=== PATIENT | male | born 1955 | race Caucasian/White ===

== ENCOUNTER 2018-04-18 07:51 | Observation (INO) ==
--- NOTE | 2018-04-18 07:55 | Emergency Department Note ---
Disposition Clinical Impression: Biliary colic, Cholelithiasis Disposition: Admitted As Inpatient Condition: Fair General Adult HPI - General Stated complaint: right side pain Time Seen by Provider: 04/18/18 07:53 - Related Data Home Medications Medication Instructions Recorded Confirmed Albuterol Sulfate [Proair Hfa] 2 puff IH QID PRN 04/18/18 04/18/18 Budesonide/Formoterol 160/4.5 2 puff IH BIDR 04/18/18 04/18/18 [Symbicort 160/4.5] Divalproex (24 HR) [Depakote ER 500 mg PO DAILY 04/18/18 04/18/18 (24 HR)] Ketotifen Fumarate [Zaditor] 1 drop BOTH EYES BID 04/18/18 04/18/18 Multivit-Min/FA/Lycopen/Lutein [A 1 tab PO DAILY 04/18/18 04/18/18 Thru Z Select Men 50+ Tablet] Omeprazole [PriLOSEC] 20 mg PO DAILY 04/18/18 04/18/18 Piroxicam [Feldene] 20 mg PO DAILY 04/18/18 04/18/18 Ranitidine HCl [Acid Employee Development Manager] 150 mg PO BID 04/18/18 04/18/18 Simvastatin [Zocor] 10 mg PO QPM 04/18/18 04/18/18 Allergies Allergy/AdvReac Type Severity Reaction Status Date / Time No Known Allergies Allergy Verified 04/18/18 08:02 Course Vital Signs Temperature 98.6 F 04/18/18 08:05 Pulse Rate 76 04/18/18 08:05 Respiratory Rate 20 04/18/18 08:05 Blood Pressure 132/96 04/18/18 08:05 O2 Sat by Pulse Oximetry 100 04/18/18 08:05 Temperature 98.0 F 04/18/18 12:53 Pulse Rate 72 04/18/18 12:53 Respiratory Rate 15 04/18/18 12:53 Blood Pressure 136/90 04/18/18 12:53 O2 Sat by Pulse Oximetry 96 04/18/18 12:53 Oxygen Delivery Oxygen Delivery Room Air Medical Decision Making - Lab Data Result diagrams: 04/18/18 08:13 04/18/18 08:13 Lab Results 10/05/18 10/05/18 10/05/18 Range/Units 08:13 08:13 08:13 WBC 12.8 H (4.3-11.1) K/mcL RBC 5.01 (4.19-5.50) M/mcL Hgb 12.2 L (12.9-16.9) g/dL Hct 39.1 (37.5-50.1) % MCV 78.0 L (83.0-100.0) fL MCH 24.4 L (28.0-33.3) pg MCHC 31.2 L (31.6-35.5) g/dL RDW 15.1 H (11.5-14.5) % Plt Count 381 (140-400) K/mcL MPV 9.5 (9.4-12.4) fL Immature Gran % 0.5 (0-4) % Seg Neutrophils % 83.1 % Lymphocytes % 6.9 % Monocytes % 8.5 % Eosinophils % 0.9 % Basophils % 0.1 % Neutrophils # 10.6 H (1.6-8.9) K/mcL Lymphocytes # 0.9 (0.6-4.6) K/mcL Monocytes # 1.1 (0.0-1.3) K/mcL Eosinophils # 0.1 (0.0-0.6) K/mcL Basophils # 0.0 (0.0-0.2) K/mcL PT (9.4-12.1) Seconds INR APTT (26.0-36.0) Seconds Sodium 135 L (136-145) mEq/L Potassium 3.9 (3.5-5.1) mEq/L Chloride 98 (98-107) mEq/L Carbon Dioxide 26 (23-29) mEq/L BUN 14 (8-23) mg/dL Creatinine 0.77 (0.70-1.30) mg/dL Est GFR ( Amer) > 60 (> 60) Est GFR (Non-Af Amer) > 60 (> 60) BUN/Creatinine Ratio 18 (6-26) Glucose 136 H (70-105) mg/dL Calculated Osmolality 283 (280-300) Lactic Acid 1.2 (0.5-2.2) mmol/L Calcium 9.8 (8.6-10.3) mg/dL Total Bilirubin 1.0 (0.3-1.0) mg/dL Direct Bilirubin 0.5 H (0.0-0.2) mg/dL Indirect Bilirubin 0.5 (0.0-1.2) mg/dL AST 14 (13-39) Units/L ALT 15 (7-52) Units/L Alkaline Phosphatase 48 (34-104) Units/L Serum Total Protein 8.0 (6.4-8.9) g/dL Albumin 3.5 (3.5-5.7) g/dL Globulin 4.5 H (2.4-3.5) g/dL Albumin/Globulin Ratio 0.8 L (1.1-2.2) Lipase 8 L (11-82) Units/L 04/18/18 Range/Units 08:31 WBC (4.3-11.1) K/mcL RBC (4.19-5.50) M/mcL Hgb (12.9-16.9) g/dL Hct (37.5-50.1) % MCV (83.0-100.0) fL MCH (28.0-33.3) pg MCHC (31.6-35.5) g/dL RDW (11.5-14.5) % Plt Count (140-400) K/mcL MPV (9.4-12.4) fL Immature Gran % (0-4) % Seg Neutrophils % % Lymphocytes % % Monocytes % % Eosinophils % % Basophils % % Neutrophils # (1.6-8.9) K/mcL Lymphocytes # (0.6-4.6) K/mcL Monocytes # (0.0-1.3) K/mcL Eosinophils # (0.0-0.6) K/mcL Basophils # (0.0-0.2) K/mcL PT 13.7 H (9.4-12.1) Seconds INR 1.2 APTT 32.6 (26.0-36.0) Seconds Sodium (136-145) mEq/L Potassium (3.5-5.1) mEq/L Chloride (98-107) mEq/L Carbon Dioxide (23-29) mEq/L BUN (8-23) mg/dL Creatinine (0.70-1.30) mg/dL Est GFR ( Amer) (> 60) Est GFR (Non-Af Amer) (> 60) BUN/Creatinine Ratio (6-26) Glucose (70-105) mg/dL Calculated Osmolality (280-300) Lactic Acid (0.5-2.2) mmol/L Calcium (8.6-10.3) mg/dL Total Bilirubin (0.3-1.0) mg/dL Direct Bilirubin (0.0-0.2) mg/dL Indirect Bilirubin (0.0-1.2) mg/dL AST (13-39) Units/L ALT (7-52) Units/L Alkaline Phosphatase (34-104) Units/L Serum Total Protein (6.4-8.9) g/dL Albumin (3.5-5.7) g/dL Globulin (2.4-3.5) g/dL Albumin/Globulin Ratio (1.1-2.2) Lipase (11-82) Units/L Attestation Statement - Attestation Attestation: For this encounter, I have reviewed the [employer] T[employer]ING MACHINE OPERATOR or PA documentation, treatment plan, and medical decision making; and I have had face to face time with this patient. [id number] time provided Patient arrives by EMS complaining of right upper quadrant pain as well as nausea and vomiting. He is uncomfortable appearing on exam. Localizes pain to his right upper quadrant.
[2018-04-18] MEDS ORDERED: Ondansetron 4 MG/2 ML VIAL IVP ONE (07:58)
[2018-04-18] MEDS ORDERED: *HR* FentaNYL (PF) 100 MCG/2 ML VIAL IVP ONE ×2 (07:58→10:50)
[2018-04-18] MEDS ORDERED: 0.9 % Sodium Chloride 1,000 ML IVC ONE (07:58)
--- NOTE | 2018-04-18 08:04 | Emergency Department Note ---
Disposition Clinical Impression: Biliary colic Cholelithiasis Qualifiers: Cholelithiasis location: gallbladder Cholecystitis presence: without cholecystitis Biliary obstruction: with biliary obstruction Qualified Code(s): K80.21 - Calculus of gallbladder without cholecystitis with obstruction Disposition: Admitted As Inpatient Condition: Fair [facility]errals: [facility] [Primary Care Provider[facility] - Abdominal Pain HPI - General Stated Complaint: right side pain Time Seen by Provider: 04/18/18 07:53 Source: patient, EMS Mode of arrival: EMS Limitations: no limitations Nursing Notes Reviewed: Yes Vital Signs Reviewed: Yes - History of Present Illness Pt Subjective Complaint: abdominal pain Onset (ago): day(s) Consistency: intermittent, Worsening Location: RUQ Pain Severity: severe Quality: stabbing, sharp Radiation: none Migration to: no migration Improves with: nothing Worsens with: movement Context: history of similar episodes Associated symptoms: Reports: nausea, vomiting, diarrhea. Denies: fever, chills , constipation, dysuria, hematemesis, hematochezia, melena, hematuria, anorexia , syncope Treatments prior to arrival: none - Related Data Allergies Allergy/AdvReac Type Severity Reaction Status Date / Time No Known Allergies Allergy Verified 04/18/18 08:02 All systems ED: reviewed and negative except as stated. Review of Systems: As Per HPI Constitutional: Denies: fever, chills, weakness Cardiovascular: Denies: chest pain, palpitations, dyspnea on exertion, orthopnea , edema, syncope Respiratory: Denies: cough, dyspnea, wheezes, hemoptysis, stridor, sputum production Gastrointestinal: Reports: as per HPI, abdominal pain, nausea, vomiting, diarrhea. Denies: constipation, hematemesis, melena, hematochezia Genitourinary: Denies: urgency, dysuria, frequency, hematuria Musculoskeletal: Denies: back pain, neck pain, joint swelling, arthralgia Neurological: Denies: headache, confusion, vertigo Hematological/Lymphatic: Denies: easy bleeding, easy bruising Abdominal Pain PMH - Past Medical History Medical history: Reports: GERD Male Surgical History: Reports: herniorrhaphy Psychiatric history: Reports: other - Social History Smoking status: Current every day smoker Alcohol use: Reports: unknown Drug use: Reports: none Physical Exam - General Limitations: no limitations General appearance: alert, in no apparent distress - Head Head exam: atraumatic, normocephalic, normal inspection - Eye Eye exam: Present: normal appearance. Absent: scleral icterus, conjunctival injection, periorbital swelling - ENT ENT exam: mucous membranes dry - Neck Neck exam: Present: normal inspection, full ROM, trachea midline. Absent: meningismus, lymphadenopathy - Chest Chest inspection: Present: normal inspection, symmetric chest wall rise. Absent : tenderness - Respiratory Respiratory exam: Present: normal lung sounds bilaterally. Absent: respiratory distress, wheezes, stridor, accessory muscle use, prolonged expiratory phase - Cardiovascular Cardiovascular exam: Present: regular rate, normal rhythm - Abdominal Exam Abdominal exam: Present: soft, tenderness, guarding, Wilcox's sign. Absent: distention, rebound, rigidity, organomegaly, tenderness at McBurney's Point, mass, pulsatile mass Abdominal tenderness: Present: RUQ - Extremities Exam Extremities exam: Present: normal inspection, full ROM. Absent: pedal edema - Back Exam Back exam: Present: normal inspection, full ROM. Absent: CVA tenderness (R), CVA tenderness (L) - Neurological Exam Neurological exam: Present: alert, oriented X3 - Psychiatric Psychiatric exam: Present: normal affect, normal mood - Skin Skin exam: Present: warm, dry, intact, normal color Course Course Narrative: 62 yr old presents from home via squad for eval of RUQ abd pain x several days. He has associated N/V/D, no fever /chills. Hx of left inguinal hernia repair repair years ago, no other surgeries. Medical hx of GERD. He has had episodes of pain similar to this in the past, but not this severe. Labs, meds and fluids ordered. Bedside U/S done by Dr. Horta shows gal stones and a large GB. No pericholecystic fluid. Images uploaded to PACS. Once labs are back, will call surgery. Case discussed with Dr. Walters. He has already seen the patient, has reviewed the EKG, and agrees with the assessment and plan. Case discussed with the [place] transfer center coordinator. She has called all of the facilities in the area and there are no beds available. She states that the patient is service connected and if he were to stay here. His bill would most likely be covered. She is unable to 100% guarantee this however. This was discussed with the patient. He is agreeable to stay here. Surgery was paged. Case discussed with Dr. Silvestre. He requests that coags be added. He will accept the patient to his service. - Reevaluation(s) Reevaluation #1: Patient is feeling better. Pain is "3 when lying still", increases with movement. Nausea is better. No vomiting since arrival. BP 138/78, heart rate 79 , Sats 98%, no fever. - Consultations Consultation #1: Case discussed with [place] transfer center. The nurse coordinator will contact all [place] facilities and she will call me back. Vital Signs Temperature 98.6 F 04/18/18 08:05 Pulse Rate 76 04/18/18 08:05 Respiratory Rate 20 04/18/18 08:05 Blood Pressure 132/96 04/18/18 08:05 O2 Sat by Pulse Oximetry 100 04/18/18 08:05 Temperature 98.6 F 04/18/18 08:05 Pulse Rate 62 04/18/18 10:38 Respiratory Rate 20 04/18/18 10:38 Blood Pressure 142/94 04/18/18 10:38 O2 Sat by Pulse Oximetry 95 04/18/18 10:38 Oxygen Delivery Oxygen Delivery Room Air Abdominal Pain - Medical Records Medical records reviewed: Yes I reviewed the patient's medical records. - Lab Data Lab results reviewed: Yes I reviewed the patient's lab results. Lab results narrative: Laboratory Last Values WBC 12.8 K/mcL (4.3-11.1) H 04/18/18 08:13 RBC 5.01 M/mcL (4.19-5.50) 04/18/18 08:13 Hgb 12.2 g/dL (12.9-16.9) L 04/18/18 08:13 Hct 39.1 % (37.5-50.1) 04/18/18 08:13 MCV 78.0 fL (83.0-100.0) L 04/18/18 08:13 MCH 24.4 pg (28.0-33.3) L 04/18/18 08:13 MCHC 31.2 g/dL (31.6-35.5) L 04/18/18 08:13 RDW 15.1 % (11.5-14.5) H 04/18/18 08:13 Plt Count 381 K/mcL (140-400) 04/18/18 08:13 MPV 9.5 fL (9.4-12.4) 04/18/18 08:13 Immature Gran % 0.5 % (0-4) 04/18/18 08:13 Seg Neutrophils % 83.1 % 04/18/18 08:13 Lymphocytes % 6.9 % 04/18/18 08:13 Monocytes % 8.5 % 04/18/18 08:13 Eosinophils % 0.9 % 04/18/18 08:13 Basophils % 0.1 % 04/18/18 08:13 Neutrophils # 10.6 K/mcL (1.6-8.9) H 04/18/18 08:13 Lymphocytes # 0.9 K/mcL (0.6-4.6) 04/18/18 08:13 Monocytes # 1.1 K/mcL (0.0-1.3) 04/18/18 08:13 Eosinophils # 0.1 K/mcL (0.0-0.6) 04/18/18 08:13 Basophils # 0.0 K/mcL (0.0-0.2) 04/18/18 08:13 Sodium 135 mEq/L (136-145) L 04/18/18 08:13 Potassium 3.9 mEq/L (3.5-5.1) 04/18/18 08:13 Chloride 98 mEq/L (98-107) 04/18/18 08:13 Carbon Dioxide 26 mEq/L (23-29) 04/18/18 08:13 BUN 14 mg/dL (8-23) 04/18/18 08:13 Creatinine 0.77 mg/dL (0.70-1.30) 04/18/18 08:13 Est GFR ( Amer) > 60 (> 60) 04/18/18 08:13 Est GFR (Non-Af Amer) > 60 (> 60) 04/18/18 08:13 BUN/Creatinine Ratio 18 (6-26) 04/18/18 08:13 Glucose 136 mg/dL (70-105) H 04/18/18 08:13 Calculated Osmolality 283 (280-300) 04/18/18 08:13 Lactic Acid 1.2 mmol/L (0.5-2.2) 04/18/18 08:13 Calcium 9.8 mg/dL (8.6-10.3) 04/18/18 08:13 Total Bilirubin 1.0 mg/dL (0.3-1.0) 04/18/18 08:13 Direct Bilirubin 0.5 mg/dL (0.0-0.2) H 04/18/18 08:13 Indirect Bilirubin 0.5 mg/dL (0.0-1.2) 04/18/18 08:13 AST 14 Units/L (13-39) 04/18/18 08:13 ALT 15 Units/L (7-52) 04/18/18 08:13 Alkaline Phosphatase 48 Units/L (34-104) 04/18/18 08:13 Serum Total Protein 8.0 g/dL (6.4-8.9) 04/18/18 08:13 Albumin 3.5 g/dL (3.5-5.7) 04/18/18 08:13 Globulin 4.5 g/dL (2.4-3.5) H 04/18/18 08:13 Albumin/Globulin Ratio 0.8 (1.1-2.2) L 04/18/18 08:13 Lipase 8 Units/L (11-82) L 04/18/18 08:13 Result diagrams: 04/18/18 08:13 04/18/18 08:13 Lab Results 04/18/18 04/18/18 04/18/18 Range/Units 08:13 08:13 08:13 WBC 12.8 H (4.3-11.1) K/mcL RBC 5.01 (4.19-5.50) M/mcL Hgb 12.2 L (12.9-16.9) g/dL Hct 39.1 (37.5-50.1) % MCV 78.0 L (83.0-100.0) fL MCH 24.4 L (28.0-33.3) pg MCHC 31.2 L (31.6-35.5) g/dL RDW 15.1 H (11.5-14.5) % Plt Count 381 (140-400) K/mcL MPV 9.5 (9.4-12.4) fL Immature Gran % 0.5 (0-4) % Seg Neutrophils % 83.1 % Lymphocytes % 6.9 % Monocytes % 8.5 % Eosinophils % 0.9 % Basophils % 0.1 % Neutrophils # 10.6 H (1.6-8.9) K/mcL Lymphocytes # 0.9 (0.6-4.6) K/mcL Monocytes # 1.1 (0.0-1.3) K/mcL Eosinophils # 0.1 (0.0-0.6) K/mcL Basophils # 0.0 (0.0-0.2) K/mcL Sodium 135 L (136-145) mEq/L Potassium 3.9 (3.5-5.1) mEq/L Chloride 98 (98-107) mEq/L Carbon Dioxide 26 (23-29) mEq/L BUN 14 (8-23) mg/dL Creatinine 0.77 (0.70-1.30) mg/dL Est GFR ( Amer) > 60 (> 60) Est GFR (Non-Af Amer) > 60 (> 60) BUN/Creatinine Ratio 18 (6-26) Glucose 136 H (70-105) mg/dL Calculated Osmolality 283 (280-300) Lactic Acid 1.2 (0.5-2.2) mmol/L Calcium 9.8 (8.6-10.3) mg/dL Total Bilirubin 1.0 (0.3-1.0) mg/dL Direct Bilirubin 0.5 H (0.0-0.2) mg/dL Indirect Bilirubin 0.5 (0.0-1.2) mg/dL AST 14 (13-39) Units/L ALT 15 (7-52) Units/L Alkaline Phosphatase 48 (34-104) Units/L Serum Total Protein 8.0 (6.4-8.9) g/dL Albumin 3.5 (3.5-5.7) g/dL Globulin 4.5 H (2.4-3.5) g/dL Albumin/Globulin Ratio 0.8 L (1.1-2.2) Lipase 8 L (11-82) Units/L - Radiology Data Radiology results reviewed: Yes I reviewed the patient's radiology results. Bedside U/S done by Dr. HORTA / Dr. Walters. Images have been uploaded to PACS. - EKG Data EKG attestation: Yes I reviewed and interpreted this EKG. EKG shows normal: sinus rhythm Rate: normal Rhythm: NSR [place]/QRS: normal When compared to previous EKG there are: no significant changes Interpretation: unchanged when compared to prior tracing (date)
[2018-04-18 08:23] LABS: Basophils % 0.1 %; Eosinophils # 0.1 K/mcL (0.0-0.6); Eosinophils % 0.9 %; Hematocrit 39.1 % (37.5-50.1); Hemoglobin 12.2 g/dL (12.9-16.9); Immature Granulocytes % 0.5 % (0-4); Lymphocytes # 0.9 K/mcL (0.6-4.6); Lymphocytes % 6.9 %; Mean Corpuscular HGB Conc 31.2 g/dL (31.6-35.5); Mean Corpuscular Hemoglobin 24.4 pg (28.0-33.3); Mean Platelet Volume 9.5 fL (9.4-12.4); Monocytes # 1.1 K/mcL (0.0-1.3); Monocytes % 8.5 %; Neutrophils # 10.6 K/mcL (1.6-8.9); Platelet Count 381 K/mcL (140-400); Red Blood Count 5.01 M/mcL (4.19-5.50); Red Cell Distribution Width 15.1 % (11.5-14.5); Segmented Neutrophils % 83.1 %
[2018-04-18 08:44] LABS: Alanine Aminotransferase 15 Units/L (7-52); Albumin 3.5 g/dL (3.5-5.7); Albumin/Globulin Ratio 0.8 (1.1-2.2); Alkaline Phosphatase 48 Units/L (34-104); Aspartate Amino Transferase 14 Units/L (13-39); BUN/Creatinine Ratio 18 (6-26); Bilirubin,Direct 0.5 mg/dL (0.0-0.2); Bilirubin,Indirect 0.5 mg/dL (0.0-1.2); Blood Urea Nitrogen 14 mg/dL (8-23); Calcium 9.8 mg/dL (8.6-10.3); Carbon Dioxide 26 mEq/L (23-29); Chloride 98 mEq/L (98-107); Globulin 4.5 g/dL (2.4-3.5); Glucose 136 mg/dL (70-105); Lipase 8 Units/L (11-82); Osmolality,Calculated 283 (280-300); Potassium 3.9 mEq/L (3.5-5.1); Sodium 135 mEq/L (136-145); eGFR For Non-African Americans > 60 (> 60)
[2018-04-18 11:10] LABS: INR 1.2; Prothrombin Time 13.7 Seconds (9.4-12.1)
[2018-04-18 11:12] LABS: Activated Partial Thrombo Time 32.6 Seconds (26.0-36.0)
[2018-04-18] MEDS ORDERED: Ondansetron ODT 4 MG TAB.RAPDIS SL PRN (11:27)
[2018-04-18] MEDS ORDERED: Naloxone 0.4 MG/ML INJ IVP PRN ×2 (11:27→11:31)
[2018-04-18] MEDS ORDERED: OXYCODONE Oral CONC 10 MG/0.5 ML ORAL.SYG SL PRN (11:27)
--- NOTE | 2018-04-18 11:28 | General Surg History&Physical ---
<Dagoberto Silvestre M - Last Filed: 04/18/18 14:42> Date of Encounter: 04/18/18 History of Present Illness HPI: Mr. Marmolejo is a 62 year old male Medications and Allergies Albuterol Sulfate [Proair Hfa] 2 puff IH QID PRN 04/18/18 [History] Budesonide/Formoterol 160/4.5 [Symbicort 160/4.5] 2 puff IH BIDR 04/18/18 [ History] Divalproex (24 HR) [Depakote ER (24 HR)] 500 mg PO DAILY 04/18/18 [History] Ketotifen Fumarate [Zaditor] 1 drop BOTH EYES BID 04/18/18 [History] Multivit-Min/FA/Lycopen/Lutein [A Thru Z Select Men 50+ Tablet] 1 tab PO DAILY 04/18/18 [History] Omeprazole [PriLOSEC] 20 mg PO DAILY 04/18/18 [History] Piroxicam [Feldene] 20 mg PO DAILY 04/18/18 [History] Ranitidine HCl [Acid Blade Operator] 150 mg PO BID 04/18/18 [History] Simvastatin [Zocor] 10 mg PO QPM 04/18/18 [History] 3 Allergy/AdvReac Type Severity Reaction Status Date / Time No Known Allergies Allergy Verified 04/18/18 08:02 Review of Systems All systems PM: The remainder of the systems were reviewed and are negative General Surgery Exam Initial Vital Signs Temp Pulse Resp BP Pulse Ox 98.6 F 76 20 132/96 100 04/18/18 08:05 04/18/18 08:05 04/18/18 08:05 04/18/18 08:05 04/18/18 08:05 Results - Labs 04/18/18 08:13 04/18/18 08:13 Abnormal lab results WBC 12.8 K/mcL (4.3-11.1) H 04/18/18 08:13 Hgb 12.2 g/dL (12.9-16.9) L 04/18/18 08:13 MCV 78.0 fL (83.0-100.0) L 04/18/18 08:13 MCH 24.4 pg (28.0-33.3) L 04/18/18 08:13 MCHC 31.2 g/dL (31.6-35.5) L 04/18/18 08:13 RDW 15.1 % (11.5-14.5) H 04/18/18 08:13 Neutrophils # 10.6 K/mcL (1.6-8.9) H 04/18/18 08:13 PT 13.7 Seconds (9.4-12.1) H 04/18/18 08:31 Sodium 135 mEq/L (136-145) L 04/18/18 08:13 Glucose 136 mg/dL (70-105) H 04/18/18 08:13 Direct Bilirubin 0.5 mg/dL (0.0-0.2) H 04/18/18 08:13 Globulin 4.5 g/dL (2.4-3.5) H 04/18/18 08:13 Albumin/Globulin Ratio 0.8 (1.1-2.2) L 04/18/18 08:13 Lipase 8 Units/L (11-82) L 04/18/18 08:13 All other labs normal. - Attending Attestation I examined this patient and my medical decision-making was reviewed with the Resident Physician. I agree with the documented findings, disposition and treatment plan as described except to the extent set forth below. I reviewed the above assessment and evaluation and agree with the above plan. Patient was 2-3 day history of right upper quadrant abdominal pain that is worse with activity. He admits to some pain with eating as well. Nausea. He admits to sharp stabbing pain. Ultrasound was performed the emergency room which showed an enlarged gallbladder and stones. He has had a previous CT scan so years ago also defined stones. Patient does however admit to recent cocaine use and a history of marijuana use. I will order a CT scan of the abdomen and pelvis with contrast to ensure that there is no evidence of duodenitis or evidence of an ulcer that may be exacerbating or the true cause of his pain. If negative then we will discuss about performing a laparoscopic cholecystectomy. <Fariha Riley - Last Filed: 04/18/18 17:24> Date of Encounter: 04/18/18 Time of Encounter: 11:27 Assessment and Plan (1) Cholelithiasis Current Visit: No Status: Suspected RUQ pain with ER reported bedside US showing cholethiasis with distended gallbladder - no images available at this time - NPO - maintenance IVF NS 100 - GI prophylaxis - supportive care and pain management CT ABD shows acute cholecystitis as expected but also lung mas like consolidations of 6.5 cm Qualifiers: Cholelithiasis location: gallbladder Cholecystitis presence: with cholecystitis Biliary obstruction: with biliary obstruction Qualified Code(s ): K80.01 - Calculus of gallbladder with acute cholecystitis with obstruction (2) Biliary colic Current Visit: No Status: Acute see above (3) COPD (chronic obstructive pulmonary disease) Current Visit: No Status: Chronic No apparent exacerbation and patient can not confirm his daily inhaler - duonebs q4 prn Qualifiers: COPD type: unspecified COPD Qualified Code(s): J44.9 - Chronic obstructive pulmonary disease, unspecified (4) HLD (hyperlipidemia) Current Visit: No Status: Chronic hold statin Qualifiers: Hyperlipidemia type: unspecified Qualified Code(s): E78.5 - Hyperlipidemia , unspecified (5) Polysubstance abuse Current Visit: No Status: Suspected Admits to recent cocaine use and distant abuse of marijuana and EtOH - UDS (6) Weight loss, non-intentional Current Visit: No Status: Acute Unknown etiology of chronic weight loss - may consider diet supplementation of insure clear - spoke with nutrition briefly and if patient remains NPO for extended period of time plan to consult corner cutter machine operator (7) Bipolar 1 disorder, depressed Current Visit: No Status: Chronic currently holding Depakote (8) Lung mass Current Visit: Yes Status: Suspected Incidental finding on CT - Dr Silvestre plans to discuss with patient (9) DVT prophylaxis Current Visit: No Status: Acute heparin sq History of Present Illness Chief complaint: abdominal pain HPI: Mr. Marmolejo is a 62 year old male hx GERD and COPD presented with abdominal pain and vomiting. Reported three days of right upper quadrant pain worse with movement but not changed by drinking milk. He started vomiting yesterday with 3- 4 episodes last one yesterday night colored of foddno blood or dark coffee grounds. He has not tolerated a meal since Saturday. Associated symptoms of headache , malaise, insomnia, acid reflux, feverish and chills. He denies confusion just tired. In ED, afebrile with HR 67 127/85 and RR 20 95%. WBC 12.8 with lactic acid of 8. Direct constanza elevated 0.5 with otherwise normal liver enzymes. Bedside US shows cholethiasis and distended gallbladder. He was given 1 L fluid and fenatyl for pain. Admits to recent use of cocaine with in last 4 days and distant abuse of marijuana and EtOH. he has been taking aleve with his piroxicam. PMHx COPD, HLD , osteoarthritis and bipolar depression denies seizures, HTN or DM. Current smoker of 1/2 pack per day and denies recent EtOH use. Surgical history of three left inguinal hernia repairs with out adverse reaction to anesthesia. No known family history of bladder issues but unknown cancer in mother. Past Med Surg Social Fam HX - Past Medical History Medical history: GERD Psychiatric history: other - Social History Smoking Status: Current every day smoker Smokeless Tobacco Status: No Alcohol use: unknown Drug use: none - Family History Father Hx Family Cancer: Yes Review of Systems All systems PM: The remainder of the systems were reviewed and are negative - Constitutional chills, fever(s) (feeling no known temp), headache(s), malaise, weight loss ( 15 lbs in 3 months), no frequent falls - Cardiovascular lightheadedness, no chest pain, no dyspnea, no palpitations, no syncope - Respiratory no cough, no wheezing - Gastrointestinal abdominal pain, cramping, dyspepsia, nausea, vomiting, no change in stool character, no coffee ground emesis, no diarrhea, no hematemesis, no loose stools - Genitourinary no dysuria, no hematuria, no urinary frequency - Musculoskeletal arthralgias, back pain, muscle cramps, other (unintentional muscle movements) - Neurological dizziness, headache(s), tremor(s), no confusion, no frequent falls - Psychiatric abnormal sleep pattern, depression, irritability, no confusion, no difficulty concentrating General Surgery Exam Initial Vital Signs Temp Pulse Resp BP Pulse Ox 98.6 F 76 20 132/96 100 04/18/18 08:05 04/18/18 08:05 04/18/18 08:05 04/18/18 08:05 04/18/18 08:05 - General physical appearance well developed, well nourished, moderate distress - Eyes pinpoint pupil, normal ocular movement - ENT normal pinna, normal nares, dry mucosa - Respiratory normal expansion, normal respiratory effort, clear to auscultation - Cardiovascular Cardiovascular exam: Present: RRR, no murmurs/rubs/gallops - Abdomen Abdomen general surgery: Present: bowel sounds present (decreased BS), soft, distended. Absent: organomegaly, masses Abdominal Tenderness: Present: RUQ Hernia: Present: none - Integumentary Integumentary general surgery: Present: warm and dry, no abnormal pigmentation. Absent: diaphoresis - Neurologic Present: CN 2-12 grossly intact, normal coordination, normal sensation, confused - Psychiatric Psychiatric general surgery: Present: A&Ox3, speech is normal, memory intact, angry (refuses to answer questions) Results - Labs 04/18/18 08:13 04/18/18 08:13 Abnormal lab results WBC 12.8 K/mcL (4.3-11.1) H 04/18/18 08:13 Hgb 12.2 g/dL (12.9-16.9) L 04/18/18 08:13 MCV 78.0 fL (83.0-100.0) L 04/18/18 08:13 MCH 24.4 pg (28.0-33.3) L 04/18/18 08:13 MCHC 31.2 g/dL (31.6-35.5) L 04/18/18 08:13 RDW 15.1 % (11.5-14.5) H 04/18/18 08:13 Neutrophils # 10.6 K/mcL (1.6-8.9) H 04/18/18 08:13 PT 13.7 Seconds (9.4-12.1) H 04/18/18 08:31 Sodium 135 mEq/L (136-145) L 04/18/18 08:13 Glucose 136 mg/dL (70-105) H 04/18/18 08:13 Direct Bilirubin 0.5 mg/dL (0.0-0.2) H 04/18/18 08:13 Globulin 4.5 g/dL (2.4-3.5) H 04/18/18 08:13 Albumin/Globulin Ratio 0.8 (1.1-2.2) L 04/18/18 08:13 Lipase 8 Units/L (11-82) L 04/18/18 08:13 Diabetes panel 04/18/18 Range/Units 08:13 Sodium 135 L (136-145) mEq/L Potassium 3.9 (3.5-5.1) mEq/L Chloride 98 (98-107) mEq/L Carbon Dioxide 26 (23-29) mEq/L BUN 14 (8-23) mg/dL Creatinine 0.77 (0.70-1.30) mg/dL Glucose 136 H (70-105) mg/dL Calcium 9.8 (8.6-10.3) mg/dL AST 14 (13-39) Units/L ALT 15 (7-52) Units/L Alkaline Phosphatase 48 (34-104) Units/L Albumin 3.5 (3.5-5.7) g/dL Calcium panel 04/18/18 Range/Units 08:13 Calcium 9.8 (8.6-10.3) mg/dL Albumin 3.5 (3.5-5.7) g/dL Pituitary panel 04/18/18 Range/Units 08:13 Sodium 135 L (136-145) mEq/L Potassium 3.9 (3.5-5.1) mEq/L Chloride 98 (98-107) mEq/L Carbon Dioxide 26 (23-29) mEq/L BUN 14 (8-23) mg/dL Creatinine 0.77 (0.70-1.30) mg/dL Glucose 136 H (70-105) mg/dL Calcium 9.8 (8.6-10.3) mg/dL Adrenal panel 04/18/18 Range/Units 08:13 Sodium 135 L (136-145) mEq/L Potassium 3.9 (3.5-5.1) mEq/L Chloride 98 (98-107) mEq/L Carbon Dioxide 26 (23-29) mEq/L BUN 14 (8-23) mg/dL Creatinine 0.77 (0.70-1.30) mg/dL Glucose 136 H (70-105) mg/dL Calcium 9.8 (8.6-10.3) mg/dL Total Bilirubin 1.0 (0.3-1.0) mg/dL AST 14 (13-39) Units/L ALT 15 (7-52) Units/L Alkaline Phosphatase 48 (34-104) Units/L Albumin 3.5 (3.5-5.7) g/dL All other labs normal.
[2018-04-18] MEDS ORDERED: 0.9 % Sodium Chloride 1,000 ML IVC SCH (11:30)
[2018-04-18] MEDS ORDERED: *HR* Promethazine 25 MG/ML VIAL IVP PRN (11:31)
[2018-04-18] MEDS ORDERED: Nicotine 14 MG PATCH.TD24 TD PRN (11:36)
[2018-04-18] MEDS ORDERED: Ipratropium/Albuterol Neb 3 ML IH PRN (11:37)
[2018-04-18] MEDS ORDERED: Isovue-370 500 ML INFUS..BTL IV ONE ×2 (13:46→17:37)
[2018-04-18] MEDS: Budesonide/Formoterol 160/4.5 1 PUFF INH IH SCH ×2 (14:35→22:20)
[2018-04-18] MEDS: *HR* Heparin 5,000 UNIT/ML VIAL SQ SCH ×2 (14:50→21:24)
[2018-04-18] MEDS ORDERED: Isovue-370 500 ML INFUS..BTL PO ONE (16:23)
[2018-04-18] MEDS: Pantoprazole 40 MG VIAL IVP SCH (16:40)
[2018-04-18] MEDS: OXYCODONE Oral CONC 10 MG/0.5 ML ORAL.SYG SL PRN ×2 (16:41→21:24)
[2018-04-18 16:56] LABS: Amphetamine Screen,Urine Negative ng/mL (Cutoff=1000); Barbiturate Screen,Urine Negative ng/mL (Cutoff=200); Benzodiazepines Screen,Urine Negative ng/mL (Cutoff=200); Cannabinoid Screen,Urine Negative ng/mL (Cutoff = 50); Cocaine Screen,Urine Positive ng/mL (Cutoff= 300); Opiate Screen,Urine Negative ng/mL (Cutoff=300); Phencyclidine Screen,Urine Negative ng/mL (Cutoff=25)
--- NOTE | 2018-04-18 17:52 | Electrocardiograph Report ---
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
--- NOTE | 2018-04-18 18:02 | Event Note ---
Date of Encounter: 04/18/18 Time of Encounter: 18:01 I reviewed with the patient the results of the CT scan of the abdomen and pelvis which did show some inflammation around the gallbladder. Coincidentally , the CT scan did show evidence of a consolidation like mass effect in the left upper lobe of the lung that was at least 6 cm in size. Since this was not a dedicated CT scan of the chest the measurement may be inaccurate. I have explained to the patient that we will go ahead and have her sign the consent form for laparoscopic cholecystectomy however first I will need to order Art formal CT scan of the chest. Will continue with IV fluids to help flush his kidneys and we may even need to consult pulmonary during this admission. Discussed with the patient and he agrees with the above plan.
[2018-04-18] MEDS: (Ketotifen Fumarate [Zaditor] 1 DROP) OP SCH (21:25)
[2018-04-19 01:30] LABS: Basophils % 0.1 %; Eosinophils # 0.3 K/mcL (0.0-0.6); Eosinophils % 3.1 %; Hematocrit 36.5 % (37.5-50.1); Hemoglobin 11.1 g/dL (12.9-16.9); Immature Granulocytes % 0.5 % (0-4); Lymphocytes # 1.3 K/mcL (0.6-4.6); Lymphocytes % 12.9 %; Mean Corpuscular HGB Conc 30.4 g/dL (31.6-35.5); Mean Corpuscular Hemoglobin 24.2 pg (28.0-33.3); Mean Corpuscular Volume 79.7 fL (83.0-100.0); Mean Platelet Volume 9.5 fL (9.4-12.4); Monocytes # 0.9 K/mcL (0.0-1.3); Monocytes % 8.9 %; Neutrophils # 7.6 K/mcL (1.6-8.9); Platelet Count 320 K/mcL (140-400); Red Blood Count 4.58 M/mcL (4.19-5.50); Red Cell Distribution Width 15.3 % (11.5-14.5); Segmented Neutrophils % 74.5 %
[2018-04-19 01:39] LABS: INR 1.4; Prothrombin Time 16.2 Seconds (9.4-12.1)
[2018-04-19 01:53] LABS: Alanine Aminotransferase 20 Units/L (7-52); Albumin/Globulin Ratio 0.8 (1.1-2.2); Alkaline Phosphatase 48 Units/L (34-104); Aspartate Amino Transferase 19 Units/L (13-39); BUN/Creatinine Ratio 16 (6-26); Bilirubin,Total 1.3 mg/dL (0.3-1.0); Blood Urea Nitrogen 12 mg/dL (8-23); Calcium 9.2 mg/dL (8.6-10.3); Carbon Dioxide 29 mEq/L (23-29); Chloride 102 mEq/L (98-107); Globulin 3.9 g/dL (2.4-3.5); Glucose 90 mg/dL (70-105); Osmolality,Calculated 283 (280-300); Potassium 3.9 mEq/L (3.5-5.1); Sodium 137 mEq/L (136-145); Total Protein 6.9 g/dL (6.4-8.9); eGFR For Non-African Americans > 60 (> 60)
[2018-04-19] MEDS: 0.9 % Sodium Chloride 1,000 ML IVC SCH ×3 (03:54→14:41)
[2018-04-19] MEDS: *HR* Heparin 5,000 UNIT/ML VIAL SQ SCH ×2 (05:07→13:41)
[2018-04-19] MEDS: Pantoprazole 40 MG VIAL IVP SCH ×2 (05:14→17:02)
[2018-04-19] MEDS: OXYCODONE Oral CONC 10 MG/0.5 ML ORAL.SYG SL PRN ×3 (05:14→18:35)
--- NOTE | 2018-04-19 07:31 | Anesthesia Evaluation PreOp ---
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 History: Other (BIPOLAR, DEPRESSION) Other Medical History: GERD (HEARTBURN, UNCONTROLLED), Other (HO ALCHOLISM, POLYSUBSTANCE ABUSE, COCAINE USED A MONTH AGO) Anesthesia History: No Prior Anesthetic Complications, Past Anesthesia (HERNIA) Alcohol Use: none Drug use: cocaine (LAST USE 1 WEEK AGO) Medications and Allergies Albuterol Sulfate [Proair Hfa] 2 puff IH QID PRN 04/18/18 [History] Budesonide/Formoterol 160/4.5 [Symbicort 160/4.5] 2 puff IH BIDR 04/18/18 [ History] Divalproex (24 HR) [Depakote ER (24 HR)] 500 mg PO DAILY 04/18/18 [History] Ketotifen Fumarate [Zaditor] 1 drop BOTH EYES BID 04/18/18 [History] Multivit-Min/FA/Lycopen/Lutein [A Thru Z Select Men 50+ Tablet] 1 tab PO DAILY 04/18/18 [History] Omeprazole [PriLOSEC] 20 mg PO DAILY 04/18/18 [History] Piroxicam [Feldene] 20 mg PO DAILY 04/18/18 [History] Ranitidine HCl [Acid Campus Recruiting Coordinator] 150 mg PO BID 04/18/18 [History] Simvastatin [Zocor] 10 mg PO QPM 04/18/18 [History] 3 Allergy/AdvReac Type Severity Reaction Status Date / Time No Known Allergies Allergy Verified 04/18/18 08:02 - Meds/Allergy Pre-op Review Medications Reviewed: Yes Allergies Reviewed: Yes Beta Blockers on Current Med List: No Anesthesia Results - Labs 04/19/18 01:16 04/19/18 01:16 Laboratory Last Values WBC 10.2 K/mcL (4.3-11.1) 04/19/18 01:16 RBC 4.58 M/mcL (4.19-5.50) 04/19/18 01:16 Hgb 11.1 g/dL (12.9-16.9) L 04/19/18 01:16 Hct 36.5 % (37.5-50.1) L 04/19/18 01:16 MCV 79.7 fL (83.0-100.0) L 04/19/18 01:16 MCH 24.2 pg (28.0-33.3) L 04/19/18 01:16 MCHC 30.4 g/dL (31.6-35.5) L 04/19/18 01:16 RDW 15.3 % (11.5-14.5) H 04/19/18 01:16 Plt Count 320 K/mcL (140-400) 04/19/18 01:16 MPV 9.5 fL (9.4-12.4) 04/19/18 01:16 Immature Gran % 0.5 % (0-4) 04/19/18 01:16 Seg Neutrophils % 74.5 % 04/19/18 01:16 Lymphocytes % 12.9 % 04/19/18 01:16 Monocytes % 8.9 % 04/19/18 01:16 Eosinophils % 3.1 % 04/19/18 01:16 Basophils % 0.1 % 04/19/18 01:16 Neutrophils # 7.6 K/mcL (1.6-8.9) 04/19/18 01:16 Lymphocytes # 1.3 K/mcL (0.6-4.6) 04/19/18 01:16 Monocytes # 0.9 K/mcL (0.0-1.3) 04/19/18 01:16 Eosinophils # 0.3 K/mcL (0.0-0.6) 04/19/18 01:16 Basophils # 0.0 K/mcL (0.0-0.2) 04/19/18 01:16 PT 16.2 Seconds (9.4-12.1) H 04/19/18 01:16 INR 1.4 04/19/18 01:16 APTT 32.6 Seconds (26.0-36.0) 04/18/18 08:31 Sodium 137 mEq/L (136-145) 04/19/18 01:16 Potassium 3.9 mEq/L (3.5-5.1) 04/19/18 01:16 Chloride 102 mEq/L (98-107) 04/19/18 01:16 Carbon Dioxide 29 mEq/L (23-29) 04/19/18 01:16 BUN 12 mg/dL (8-23) 04/19/18 01:16 Creatinine 0.73 mg/dL (0.70-1.30) 04/19/18 01:16 Est GFR ( Amer) > 60 (> 60) 04/19/18 01:16 Est GFR (Non-Af Amer) > 60 (> 60) 04/19/18 01:16 BUN/Creatinine Ratio 16 (6-26) 04/19/18 01:16 Glucose 90 mg/dL (70-105) 04/19/18 01:16 POC Glucose 106 mg/dL (70-99) H 04/18/18 17:09 Calculated Osmolality 283 (280-300) 04/19/18 01:16 Lactic Acid 1.2 mmol/L (0.5-2.2) 04/18/18 08:13 Calcium 9.2 mg/dL (8.6-10.3) 04/19/18 01:16 Total Bilirubin 1.3 mg/dL (0.3-1.0) H 04/19/18 01:16 Direct Bilirubin 0.5 mg/dL (0.0-0.2) H 04/18/18 08:13 Indirect Bilirubin 0.5 mg/dL (0.0-1.2) 04/18/18 08:13 AST 19 Units/L (13-39) 04/19/18 01:16 ALT 20 Units/L (7-52) 04/19/18 01:16 Alkaline Phosphatase 48 Units/L (34-104) 04/19/18 01:16 Serum Total Protein 6.9 g/dL (6.4-8.9) 04/19/18 01:16 Albumin 3.0 g/dL (3.5-5.7) L 04/19/18 01:16 Globulin 3.9 g/dL (2.4-3.5) H 04/19/18 01:16 Albumin/Globulin Ratio 0.8 (1.1-2.2) L 04/19/18 01:16 Lipase 8 Units/L (11-82) L 04/18/18 08:13 Urine Opiates Screen Negative ng/mL (Mewmvh=447) 04/18/18 15:45 Ur Barbiturates Screen Negative ng/mL (Lcqcvz=315) 04/18/18 15:45 Ur Phencyclidine Scrn Negative ng/mL (Cutoff=25) 04/18/18 15:45 Ur Amphetamines Screen Negative ng/mL (Yhxodg=5502) 04/18/18 15:45 U Benzodiazepines Scrn Negative ng/mL (Plahzf=994) 04/18/18 15:45 Urine Cocaine Screen Positive ng/mL (Cutoff= 300) H 04/18/18 15:45 U Marijuana (THC) Screen Negative ng/mL (Cutoff = 50) 04/18/18 15:45 Ur Drug Screen Interp See Below 04/18/18 15:45 - Imaging EKG: report reviewed (SR) Additional studies: CT CHEST 04/18/2018: Neoplastic-appearing 6 cm mass involving the lingular left upper lobe. There are small associated lymph nodes in the mediastinum, including some tiny right hilar lymph nodes. Correlate with any prior outside imaging; otherwise, the tissue sampling in conjunction with PET-CT should be considered. Anesthesia Exam Vital Signs/O2 Sat/Glucose, Most Recent Temp Pulse Resp BP Pulse Ox 98.3 F 78 16 109/72 94 04/19/18 06:32 04/19/18 06:32 04/19/18 06:32 04/19/18 06:32 04/19/18 06:32 Blood Glucose* 90 HEIGHT 1.73 m WEIGHT 72 kg BMI 24 NPO (# of Hours): 8 - HEENT Mallampati: I Teeth: Edentulous Denture Type: Upper: Complete, Lower: Complete Oral Opening: Greater than 3 - Cardiac Rhythm: Regular - Pulmonary Breath Sounds: bilateral Clear Respiratory Effort: Symmetrical - Additional Findings INPATIENT Active Medications Albuterol/Ipratropium (Duoneb) 3 ml IH [id number] PRN PRN Reason: Shortness Of Breath/Wheezing Stop: 10/18/18 11:38 Budesonide/Formoterol Fumarate (Symbicort) 2 puff IH BIDR NA PRN Reason: Protocol Stop: 10/18/18 12:01 Last Admin: 04/18/18 22:20 Dose: Not Given Heparin Sodium (Porcine) (Heparin) 5,000 unit SQ Q8HCO NA Stop: 10/18/18 14:01 Last Admin: 04/19/18 05:07 Dose: Not Given Sodium Chloride (0.9 % Sodium Chloride) 1,000 mls @ 125 mls/hr IVC .Q8H [facility] Stop: 04/19/18 09:38 Last Admin: 04/19/18 03:54 Dose: 125 mls/hr Naloxone HCl (Narcan) 0.4 mg IVP Q2MIN PRN PRN Reason: SEE COMMENTS Stop: 10/18/18 11:32 Nicotine (Nicoderm) 14 mg TD DAILY PRN; Protocol PRN Reason: Agitation Stop: 10/18/18 11:46 Ondansetron HCl (Zofran Odt) 4 mg SL Q6HR PRN PRN Reason: Nausea And Vomiting Stop: 10/18/18 11:28 Oxycodone HCl (Oxycodone Oral Conc) 5 mg SL Q4H PRN; Protocol PRN Reason: mild to moderate pain Stop: 10/18/18 11:28 Oxycodone HCl (Oxycodone Oral Conc) 10 mg SL Q4H PRN; Protocol PRN Reason: Severe Pain Stop: 10/18/18 11:32 Last Admin: 04/19/18 05:14 Dose: 10 mg Pantoprazole Sodium (Protonix) 40 mg IVP Q12HR [facility] Stop: 10/18/18 18:01 Last Admin: 04/19/18 05:14 Dose: 40 mg Pharmacy Profile Note (Patient Taking Own Medication) 0 each OP BID [facility] Stop: 10/18/18 21:01 Last Admin: 04/18/18 21:25 Dose: Not Given Promethazine HCl (Phenergan) 12.5 mg IVP Q6HR PRN PRN Reason: Nausea And Vomiting Stop: 10/18/18 11:32 Anesthesia Assess/Plan ASA Score: 3, E Modified [place] Scale for Level of Consciousness: Cooperative, oriented, and tranquil Anesthetic Plan: General Monitoring Plan: Standard Monitors Recovery Plan: PACU Anes Supervising Prov Stmt: Patient informed and consented. Risks, benefits, and alternatives discussed. Patient wishes to proceed.
--- NOTE | 2018-04-19 08:30 | Pulmonology Consult Note ---
Date of Encounter: 04/19/18 Time of Encounter: 08:20 Assessment and Plan (1) Lung mass Current Visit: Yes Status: Suspected Had this incidental finding of left upper lobe mass almost completely obstructing the lingular bronchus did endobronchial biopsies of the JAMIE endobronchial lesion with two cyto-brushing and BAL most likely this will give the diagnosis is a possibility this can also be necrotic material in that case she will need an outpatient endobronchial ultrasound we will follow him up next with me as outpatient [place] pulmonology biopsy results follow up and further managment . His bleeding was controlled with intratracheal epinephrine and Thrombin. (2) Pneumonia Current Visit: Yes Status: Acute There can be some postobstructive pneumonia we will start on IV levofloxacin for 5-7 days. Qualifiers: Pneumonia type: due to unspecified organism Laterality: left Lung location: upper lobe of lung Qualified Code(s): J18.1 - Lobar pneumonia, unspecified organism (3) COPD (chronic obstructive pulmonary disease) Current Visit: Yes Status: Acute Patient does not look like he is in COPD exacerbation we will do schedule bronchodilators to continue his home regimen albuterol and Symbicort on discharge. Qualifiers: COPD type: chronic bronchitis Qualified Code(s): J42 - Unspecified chronic bronchitis History of Present Illness Consult date: 04/19/18 Requesting physician: Dagoberto Silvestre Chief complaint: Abdominal and chest pain . History of present illness: 62-year-old male with past medical history significant for GERD, COPD on albuterol and Symbicort, chronic smoker has family history of lung cancer came to the hospital with abdominal pain is mostly in the right upper quadrant some radiation to the epigastric region he also has some on and off chest pain denies much cough has some on and off sputum production in the past but off late not that much denies any hemoptysis denies any chest tightness denies any palpitation or syncope during the workup for his abdominal pain he was found to have acute cholecystitis with gallstone CT abdomen showed some left upper lobe mass and the formal CT chest showed left upper lobe lingular mass with some mild mediastinal and hilar lymphadenopathy patient denies any loss of weight or appetite has some substance abuse problem. Surgery consult did pulmonology since patient is going for surgery neuro requesting whether commercial credit analyst can do a bronchoscopy for evaluation of this left upper lobe mass. Past Med Surg Social Fam HX - Past Medical History Medical history: GERD Psychiatric history: other - Past Surgical History Surgical History: herniorrhaphy - Social History Smoking Status: Current every day smoker Packs per day: 1/2 Smokeless Tobacco Status: No Alcohol use: none Drug use: cocaine (LAST USE 1 WEEK AGO) - Family History Father Hx Family Cancer: Yes Medications and Allergies Albuterol Sulfate [Proair Hfa] 2 puff IH QID PRN 04/18/18 [History] Budesonide/Formoterol 160/4.5 [Symbicort 160/4.5] 2 puff IH BIDR 04/18/18 [ History] Divalproex (24 HR) [Depakote ER (24 HR)] 500 mg PO DAILY 04/18/18 [History] Ketotifen Fumarate [Zaditor] 1 drop BOTH EYES BID 04/18/18 [History] Multivit-Min/FA/Lycopen/Lutein [A Thru Z Select Men 50+ Tablet] 1 tab PO DAILY 04/18/18 [History] Omeprazole [PriLOSEC] 20 mg PO DAILY 04/18/18 [History] Piroxicam [Feldene] 20 mg PO DAILY 04/18/18 [History] Ranitidine HCl [Acid Offset Pressman] 150 mg PO BID 04/18/18 [History] Simvastatin [Zocor] 10 mg PO QPM 04/18/18 [History] 3 Allergy/AdvReac Type Severity Reaction Status Date / Time No Known Allergies Allergy Verified 04/18/18 08:02 All Systems: The remainder of the systems were reviewed and are negative Physical Examination Vital Signs: Vital Signs, Last 4 Hours Temp Pulse Resp BP Pulse Ox 04/19/18 06:32 98.3 F 78 16 109/72 94 Auscultation: bilateral: clear Gastrointestinal: soft, other (some RUQ tenderness) Results - Laboratory Findings CBC and BMP: 04/19/18 01:16 04/19/18 01:16 PT/INR, D-dimer PT 16.2 Seconds (9.4-12.1) H 04/19/18 01:16 Abnormal lab findings: Abnormal lab results Hgb 11.1 g/dL (12.9-16.9) L 04/19/18 01:16 Hct 36.5 % (37.5-50.1) L 04/19/18 01:16 MCV 79.7 fL (83.0-100.0) L 04/19/18 01:16 MCH 24.2 pg (28.0-33.3) L 04/19/18 01:16 MCHC 30.4 g/dL (31.6-35.5) L 04/19/18 01:16 RDW 15.3 % (11.5-14.5) H 04/19/18 01:16 PT 16.2 Seconds (9.4-12.1) H 04/19/18 01:16 POC Glucose 106 mg/dL (70-99) H 04/18/18 17:09 Total Bilirubin 1.3 mg/dL (0.3-1.0) H 04/19/18 01:16 Direct Bilirubin 0.5 mg/dL (0.0-0.2) H 04/18/18 08:13 Albumin 3.0 g/dL (3.5-5.7) L 04/19/18 01:16 Globulin 3.9 g/dL (2.4-3.5) H 04/19/18 01:16 Albumin/Globulin Ratio 0.8 (1.1-2.2) L 04/19/18 01:16 Lipase 8 Units/L (11-82) L 04/18/18 08:13 Urine Cocaine Screen Positive ng/mL (Cutoff= 300) H 04/18/18 15:45 - Clinical Findings Intake & Output: Intake & Output 04/18/18 04/19/18 04/19/18 23:59 07:59 15:59 Intake Total 0 / 0 1000 / 1000 Output Total 500 / 500 0 / 0 Balance -500 / -500 1000 / 1000 Consult Discharge Plan - Plan [facility]errals: [facility]Primary Care Provider[facility] -
[2018-04-19] MEDS: Budesonide/Formoterol 160/4.5 1 PUFF INH IH SCH ×2 (08:32→21:32)
[2018-04-19] MEDS ORDERED: Lidocaine -MPF 2% 2 ML VIAL ONE (08:33)
[2018-04-19] MEDS ORDERED: *HR* Propofol 200 MG/20 ML VIAL IVP ONE (08:33)
[2018-04-19] MEDS ORDERED: Lidocaine -MPF 4% 5 ML AMPUL ONE (08:33)
[2018-04-19] MEDS ORDERED: *HR* Succinylcholine 200 MG/10 ML VIAL IVP ONE (08:33)
[2018-04-19] MEDS ORDERED: *HR* FentaNYL (PF) 100 MCG/2 ML VIAL ONE (08:33)
[2018-04-19] MEDS ORDERED: *HR* Rocuronium Bromide 50 MG/5 ML VIAL ONE ×2 (08:33→10:53)
[2018-04-19] MEDS ORDERED: Dexamethasone 4 MG/ML VIAL ONE (08:33)
[2018-04-19] MEDS ORDERED: Ondansetron 4 MG/2 ML VIAL ONE (08:33)
[2018-04-19] MEDS: (Ketotifen Fumarate [Zaditor] 1 DROP) OP SCH ×2 (08:57→21:02)
[2018-04-19] MEDS: Ringers Solution, Lactated 1,000 ML IVC SCH ×2 (09:00→11:45)
[2018-04-19] MEDS ORDERED: *HR* Promethazine 25 MG/ML VIAL IVP PRN ×2 (09:16→13:41)
[2018-04-19] MEDS ORDERED: *HR* Meperidine 25 MG/ML SYRINGE IVP PRN (09:16)
[2018-04-19] MEDS ORDERED: *HR* HYDROmorphone (PF) 1 MG/ML SYRINGE IVP PRN (09:16)
[2018-04-19] MEDS ORDERED: Ondansetron 4 MG/2 ML VIAL IVP ONE (09:16)
[2018-04-19] MEDS ORDERED: Ipratropium Neb 0.5 MG NEBULIZER IH ONE (09:16)
[2018-04-19] MEDS ORDERED: *HR* PHENYLEPHRINE 1,000 MCG/10 ML SYRINGE IVP ONE ×2 (09:28→10:04)
[2018-04-19] MEDS ORDERED: *HR* EPINEPHrine 1 MG/10 ML SYRINGE ONE (10:00)
[2018-04-19] MEDS ORDERED: cefOXitin 2,000 MG in Water for inj. (sterile) 20 ML 20 ML IVP ONE (10:05)
[2018-04-19] MEDS ORDERED: CefOXitin 2,000 MG VIAL ONE (10:12)
[2018-04-19] MEDS ORDERED: Ketorolac 30 MG/ML VIAL ONE (10:30)
[2018-04-19] MEDS ORDERED: Neostigmine Methylsulfate 3 MG/3 ML SYRINGE ONE ×2 (12:17→12:22)
[2018-04-19] MEDS ORDERED: *HR* Morphine 10 MG/ML VIAL ONE (12:23)
--- NOTE | 2018-04-19 12:44 | Operative Note ---
Date of procedure: 04/19/18 Pre-op diagnosis: Acute cholecystitis Post-op diagnosis: same Procedure: Laparoscopic cholecystectomy converted to open. Repair of hepatic arterial bleed. Anesthesia: GETA Surgeon: Dagoberto Silvestre Was there an assistant store manager operations present: No Estimated blood loss (cc): 1,200 Specimen: gallbladder and contents Condition: stable Disposition: PACU Procedure in Detail: Date of surgery: 04/19/18 After properly identifying the patient, the patient was brought to the operating room and placed in the supine position. After proper IV sedation was achieved followed by general endotracheal intubation, the patient's abdomen was prepped and draped in normal sterile fashion. A timeout was performed noting the patient's name and type of procedure to be performed. A supraumbilical incision with an 11 blade scalpel level of the rectus fascia. The rectus fascia was incised and the abdomen was entered and a 12 mm port was placed in the incision. A laparoscopic camera was placed to the port which showed no injury to the intra-abdominal organs upon entry. A subxiphoid 5 mm port and a right subcostal margin 5 mm port were then placed under direct camera visualization. The patient was placed in a reverse Trendelenburg position and the gallbladder was identified and noted to be distended and erythematous with omental adhesions. The omental adhesions were bluntly dissected with a nontraumatic grasper and the gallbladder was decompressed using a laparoscopic needle decompression device allowing for removal of 70-80 mL of bilious fluid to be removed from the gallbladder. This allowed for grasping of the gallbladder and retraction superiorly. The gallbladder was noted to be distended with inflamed lymphatics surrounding the presumed location of the infundibulum and cystic duct. Further retraction superiorly and attempted careful dissection of the peritoneal covering did allow for visualization of the cystic duct which was isolated, clipped laparoscopic clips , then incised laparoscopic scissors. This allowed for better grasping and superior retraction for visualization of the cystic artery. There were inflamed lymphatic vessels and during the blunt dissection there was noted bleeding from a region of lymphatics which was the presumed location of the cystic artery. Multiple attempts at identifying and clipping the structure were tried with an inability to properly visualize the vessel. Pressure was then placed over the area of bleeding and irrigation was performed. This maneuver was repeated several times with the attempt to once again visualize the bleeing vessel, however it was difficult to identify where the bleed was located and due to an inability to properly isolate the area of bleeding. Hemostasis had been maintained and a hematoma was noted in the area of concern. The area was irrigated once again and suctioned and the gallbladder was able to be dissected off the gallbladder fossa with Bovie cauterization while Bovie cauterization was used to maintain hemostasis. Once the gallbladder was dissected free it was removed from the abdomen via an Endobag. Because of the amount of bleeding that was present and an inability to truly identify the cystic artery reinspection of this location was performed. An additional 5 mm port was placed in the right upper quadrant. Again after suctioning of the hematoma there was renewed bleeding with an inability to visualize location of the vessel. The decision was made to go ahead and convert this to an open procedure by removing all ports after placing pressure in the region of the lymphatics. A 15 blade scalpel was used to make an incision in the right upper quadrant connecting all of the right upper quadrant port sites. Dissection was carried through the subcutaneous tissue and anterior fascia. The rectus abdominis muscle was transected with Bovie cauterization and the posterior sheath was also opened with Bovie cauterization. A Bookwalter was brought onto the operative field to retract the abdominal wall fascia and sponges were immediately placed the right upper quadrant. Further retraction was then performed in the sponges were removed. There was no evidence of active bleeding once visualization was performed in the right upper quadrant. After careful suctioning and irrigation the area of bleeding could be identified which was right at the level of the hepatic artery. The bleeding was from a barely visible stump from the hepatic artery which was consistent with the origin of the cystic artery. This was oversewed with a 6-0 Prolene suture. Once bleeding was hemostatically controlled the right upper quadrant was copiously irrigated with normal saline solution and inspection once again demonstrated maintenance of hemostasis. Once this was verified the decision was made to complete the surgical procedure by reapproximating the abdominal wall fascia in a single layer with running #1 looped PDS sutures 2. The subcutis tissue was reapproximated with 2-0 Vicryl sutures and the epidermal and dermal layers for the remaining incisions were closed with naresh. The abdominal wall fascia for the super umbilical incision was closed with a figure- of-eight 0 Vicryl suture. The epidermal and dermal layers at this level was closed with naresh. Needle, sponge, and instrument counts were correct 2 and the incisions were covered with 4 x 4's. The patient was aroused from IV sedation, extubated in the operating room without complication, and transported to the recovery room stable condition.
[2018-04-19 12:55] LABS: Appearance of Body Fluid Hazy (Clear); Volume of Body Fluid 12 mL
--- NOTE | 2018-04-19 13:19 | Anesthesia Evaluation Post Op ---
Date of Encounter: 04/19/18 Time of Encounter: 13:18 - Vital Signs Vital Signs: Vital Signs/O2 Sat, Most Current Temp Pulse Resp BP Pulse Ox 99.4 F 86 18 100/73 94 04/19/18 12:50 04/19/18 13:10 04/19/18 13:10 04/19/18 13:10 04/19/18 13:10 - Lungs Lungs: Clear Ascult./Percussion - Airway Airway: Non-obstructed - Cardiovascular Regular Rate - Mental Status Mental Status: Alert & Oriented, Answers Appropriately - Pain Pain Scale: 5 Pain Scale used: Numeric (1 - 10) - Nausea Vomiting Nausea Vomiting: Not Present - Hydration Hydration: NPO, Has not voided Notes: 04/19/18 13:19 pt denies complaints - Discharge PostOp Status: Transfer Patient to floor
[2018-04-19] MEDS ORDERED: Ipratropium/Albuterol Neb 3 ML IH PRN (13:41)
[2018-04-19] MEDS ORDERED: Naloxone 0.4 MG/ML INJ IVP PRN (13:41)
[2018-04-19] MEDS ORDERED: OXYCODONE Oral CONC 10 MG/0.5 ML ORAL.SYG SL PRN (13:41)
[2018-04-19] MEDS ORDERED: Ondansetron ODT 4 MG TAB.RAPDIS SL PRN (13:41)
[2018-04-19] MEDS ORDERED: Nicotine 14 MG PATCH.TD24 TD PRN (13:41)
[2018-04-19] MEDS: Ketorolac 30 MG/ML VIAL IVP SCH (17:02)
[2018-04-19] MEDS: Doxycycline 100 MG in 0.9 % Sodium Chloride Mini Bag 100 ML IVPB SCH (17:02)
[2018-04-20] MEDS: Ketorolac 30 MG/ML VIAL IVP SCH ×4 (00:26→17:48)
[2018-04-20] MEDS: OXYCODONE Oral CONC 10 MG/0.5 ML ORAL.SYG SL PRN ×2 (04:09→08:29)
[2018-04-20 04:46] LABS: Basophils % 0.2 %; Eosinophils % 0.1 %; Hematocrit 26.4 % (37.5-50.1); Immature Granulocytes % 0.8 % (0-4); Lymphocytes # 1.4 K/mcL (0.6-4.6); Lymphocytes % 12.6 %; Mean Corpuscular HGB Conc 30.7 g/dL (31.6-35.5); Mean Corpuscular Hemoglobin 24.5 pg (28.0-33.3); Monocytes # 1.2 K/mcL (0.0-1.3); Monocytes % 11.1 %; Neutrophils # 8.4 K/mcL (1.6-8.9); Platelet Count 356 K/mcL (140-400); Red Cell Distribution Width 15.3 % (11.5-14.5); Segmented Neutrophils % 75.2 %
[2018-04-20 04:48] LABS: Hemoglobin 8.1 g/dL (12.9-16.9)
[2018-04-20 05:12] LABS: BUN/Creatinine Ratio 26 (6-26); Blood Urea Nitrogen 27 mg/dL (8-23); Calcium 8.4 mg/dL (8.6-10.3); Carbon Dioxide 25 mEq/L (23-29); Chloride 101 mEq/L (98-107); Glucose 97 mg/dL (70-105); Osmolality,Calculated 287 (280-300); Potassium 4.4 mEq/L (3.5-5.1); Sodium 136 mEq/L (136-145); eGFR For Non-African Americans > 60 (> 60)
[2018-04-20] MEDS: Pantoprazole 40 MG VIAL IVP SCH ×2 (06:37→17:48)
[2018-04-20] MEDS: Doxycycline 100 MG in 0.9 % Sodium Chloride Mini Bag 100 ML IVPB SCH ×2 (06:38→17:48)
[2018-04-20] MEDS: Budesonide/Formoterol 160/4.5 1 PUFF INH IH SCH ×2 (08:21→20:22)
[2018-04-20] MEDS: 0.9 % Sodium Chloride 1,000 ML IVC SCH (08:30)
[2018-04-20] MEDS: (Ketotifen Fumarate [Zaditor] 1 DROP) OP SCH (08:30)
--- NOTE | 2018-04-20 09:33 | Pulmonology Progress Note ---
Date of Encounter: 04/20/18 Time of Encounter: 09:30 Assessment and Plan (1) Lung mass Current Visit: Yes Status: Suspected Patient has this left upper lobe mass with an endobronchial lesion which obstructing 90% of lingular bronchus did endobronchial biopsy of the mass and cytobrush . Cytology pending it will take atleast saturday for a prelim report . 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 please arrange a follow up on this week . (2) Pneumonia Current Visit: Yes Status: Acute less convincing of pneumonia on discharge will need 5 days of antibiotics . Qualifiers: Pneumonia type: due to unspecified organism Laterality: left Lung location: upper lobe of lung Qualified Code(s): J18.1 - Lobar pneumonia, unspecified organism (3) COPD (chronic obstructive pulmonary disease) Current Visit: Yes Status: Acute To send home on Albuterol inhaler prn . Qualifiers: COPD type: chronic bronchitis Chronic bronchitis type: unspecified Qualified Code(s): J42 - Unspecified chronic bronchitis Subjective Principal diagnosis: Lung mass Interval history: Patient came for acute cholecystitis had a laparoscopic cholecystectomy and he had incidental finding a left upper lobe lung mass and he had a combined procedure of bronchoscopy with endobronchial lesion which was biopsied with Cytobrush. Patient is doing well denies any hemoptysis not much cough or sputum production not but chest pain had some right shoulder pain after laparoscopy and he has some pain in the abdomen denies any fever or chills or any other constitutional symptoms. Objective PUL Vital signs: Last Vital Signs Temp 97.7 F 04/20/18 07:05 Pulse 70 04/20/18 07:05 Resp 16 04/20/18 07:05 BP 119/78 04/20/18 07:05 Pulse Ox 96 04/20/18 07:05 Results - Laboratory Findings CBC and BMP: 04/20/18 04:30 04/20/18 04:30 PT/INR, D-dimer PT 16.2 Seconds (9.4-12.1) H 04/19/18 01:16 Abnormal lab findings: Abnormal lab results RBC 3.30 M/mcL (4.19-5.50) L 04/20/18 04:30 Hgb 8.1 g/dL (12.9-16.9) L D 04/20/18 04:30 Hct 26.4 % (37.5-50.1) L 04/20/18 04:30 MCV 80.0 fL (83.0-100.0) L 04/20/18 04:30 MCH 24.5 pg (28.0-33.3) L 04/20/18 04:30 MCHC 30.7 g/dL (31.6-35.5) L 04/20/18 04:30 RDW 15.3 % (11.5-14.5) H 04/20/18 04:30 PT 16.2 Seconds (9.4-12.1) H 04/19/18 01:16 BUN 27 mg/dL (8-23) H 04/20/18 04:30 Calcium 8.4 mg/dL (8.6-10.3) L 04/20/18 04:30 Total Bilirubin 1.3 mg/dL (0.3-1.0) H 04/19/18 01:16 Direct Bilirubin 0.5 mg/dL (0.0-0.2) H 04/18/18 08:13 Albumin 3.0 g/dL (3.5-5.7) L 04/19/18 01:16 Globulin 3.9 g/dL (2.4-3.5) H 04/19/18 01:16 Albumin/Globulin Ratio 0.8 (1.1-2.2) L 04/19/18 01:16 Lipase 8 Units/L (11-82) L 04/18/18 08:13 Fluid Appearance Hazy (Clear) A 04/19/18 09:46 Urine Cocaine Screen Positive ng/mL (Cutoff= 300) H 04/18/18 15:45 - Microbiology Findings Microbiology Findings: Microbiology, Last 48 Hours 04/19/18 09:46 Respiratory Culture - Preliminary Left Upper Lobe Lung - Clinical Findings Intake & Output: Intake & Output 04/19/18 04/20/18 04/20/18 23:59 07:59 15:59 Intake Total 580 / 580 1050 / 1050 Output Total 0 / 0 250 / 250 Balance 580 / 580 800 / 800 Weight 72 kg Consult Discharge Plan - Plan [facility]errals: [facility] [Primary Care Provider[facility] -
--- NOTE | 2018-04-20 12:14 | General Surgery Progress Note ---
Date of Encounter: 04/20/18 Time of Encounter: 12:12 - Assessment and Plan (1) Acute cholecystitis Current Visit: Yes Status: Acute I splayed to the patient that the gallbladder was definitely acutely inflamed with some signs of severe inflammation. He has significant bleeding due to the inflammation which required me to make right upper quadrant incision and remove the gallbladder in an open fashion and also control of bleeding. I expect overall he will recover well. He is on full liquids and will likely advance his medial to soft food diet this evening. We will stop IV fluids as well. If he continues to improve then we will likely discharge him home tomorrow. (2) Acute blood loss anemia Current Visit: Yes Status: Acute Loss anemia secondary to intraoperative bleed. Hemoglobin 8.1. He definitely is stable and does not require blood transfusion. We will continue to monitor. We will start iron supplementation today. Subjective Patient reports: other (Patient admits to some right upper quadrant abdominal pain denies any nausea or vomiting.) Objective Vital Signs - Last 8 Hours Temp Pulse Resp BP Pulse Ox 04/20/18 11:05 98.1 F 75 16 102/66 92 04/20/18 07:05 97.7 F 70 16 119/78 96 Intake and Output 04/19/18 04/20/18 04/20/18 23:59 07:59 15:59 Intake Total 580 / 580 1050 / 1050 120 / 120 Output Total 0 / 0 250 / 250 200 / 200 Balance 580 / 580 800 / 800 -80 / -80 Intake: IV Fluids 100 / 100 950 / 950 0.9 % Sodium Chloride 1,000 ML 950 / 950 @ 80 mls/hr IVC .[id number] NA Rx #:[id number] Doxycycline 100 MG In 0.9 % 100 / 100 Sodium Chloride (Mini-Bag +) 100 ML @ 100 mls/hr IVPB Q12HR NA Rx#:[id number] Oral 480 / 480 100 / 100 120 / 120 Output: Urine 0 / 0 250 / 250 200 / 200 Other: Weight 72 kg Blood Glucose* 119 Patient Weight 04/20/18 23:59 Weight 72 kg - General physical appearance no distress - Abdomen Abdomen: Present: soft, tender (Noted in the right upper quadrant.) - Labs 04/20/18 04:30 04/20/18 04:30 Diabetes panel 04/20/18 Range/Units 04:30 Sodium 136 (136-145) mEq/L Potassium 4.4 (3.5-5.1) mEq/L Chloride 101 (98-107) mEq/L Carbon Dioxide 25 (23-29) mEq/L BUN 27 H (8-23) mg/dL Creatinine 1.03 (0.70-1.30) mg/dL Glucose 97 (70-105) mg/dL Calcium 8.4 L (8.6-10.3) mg/dL Calcium panel 04/20/18 Range/Units 04:30 Calcium 8.4 L (8.6-10.3) mg/dL Pituitary panel 04/20/18 Range/Units 04:30 Sodium 136 (136-145) mEq/L Potassium 4.4 (3.5-5.1) mEq/L Chloride 101 (98-107) mEq/L Carbon Dioxide 25 (23-29) mEq/L BUN 27 H (8-23) mg/dL Creatinine 1.03 (0.70-1.30) mg/dL Glucose 97 (70-105) mg/dL Calcium 8.4 L (8.6-10.3) mg/dL Adrenal panel 04/20/18 Range/Units 04:30 Sodium 136 (136-145) mEq/L Potassium 4.4 (3.5-5.1) mEq/L Chloride 101 (98-107) mEq/L Carbon Dioxide 25 (23-29) mEq/L BUN 27 H (8-23) mg/dL Creatinine 1.03 (0.70-1.30) mg/dL Glucose 97 (70-105) mg/dL Calcium 8.4 L (8.6-10.3) mg/dL Consult Discharge Plan - Plan [facility]errals: [facility] [Primary Care Provider] -
[2018-04-20] MEDS: *HR* Heparin 5,000 UNIT/ML VIAL SQ SCH (17:48)
[2018-04-21] MEDS: (Ketotifen Fumarate [Zaditor] 1 DROP) OP SCH ×2 (00:02→08:26)
[2018-04-21] MEDS: Ketorolac 30 MG/ML VIAL IVP SCH ×3 (00:03→12:07)
[2018-04-21 02:12] LABS: Eosinophils # 0.2 K/mcL (0.0-0.6); Hematocrit 22.9 % (37.5-50.1); Immature Granulocytes % 0.5 % (0-4); Lymphocytes # 1.1 K/mcL (0.6-4.6); Lymphocytes % 18.9 %; Mean Corpuscular HGB Conc 30.6 g/dL (31.6-35.5); Mean Corpuscular Hemoglobin 24.6 pg (28.0-33.3); Mean Corpuscular Volume 80.4 fL (83.0-100.0); Mean Platelet Volume 10.2 fL (9.4-12.4); Monocytes # 0.5 K/mcL (0.0-1.3); Monocytes % 8.3 %; Platelet Count 244 K/mcL (140-400); Red Blood Count 2.85 M/mcL (4.19-5.50); Segmented Neutrophils % 69.3 %
[2018-04-21 02:33] LABS: BUN/Creatinine Ratio 21 (6-26); Blood Urea Nitrogen 21 mg/dL (8-23); Calcium 8.2 mg/dL (8.6-10.3); Carbon Dioxide 26 mEq/L (23-29); Chloride 105 mEq/L (98-107); Glucose 140 mg/dL (70-105); Osmolality,Calculated 291 (280-300); Potassium 3.7 mEq/L (3.5-5.1); Sodium 138 mEq/L (136-145); eGFR For Non-African Americans > 60 (> 60)
[2018-04-21] MEDS: Doxycycline 100 MG in 0.9 % Sodium Chloride Mini Bag 100 ML IVPB SCH (06:53)
[2018-04-21] MEDS: Pantoprazole 40 MG VIAL IVP SCH (06:54)
[2018-04-21] MEDS: *HR* Heparin 5,000 UNIT/ML VIAL SQ SCH (06:54)
[2018-04-21 07:35] VITALS: BP 123/78
[2018-04-21] MEDS: Budesonide/Formoterol 160/4.5 1 PUFF INH IH SCH (11:02)
--- NOTE | 2018-04-21 12:30 | Discharge Summary ---
Orders not resulted at time of discharge: Pending orders 04/19/18 09:46 AFB Culture, Respiratory [TB] Routine AFB Smear [TB] Routine Culture,Respiratory [RM] Routine Fungal Culture [MYC] Routine 04/19/18 10:07 Cytology [PTH] Routine 04/19/18 10:15 Surgical Pathology [PTH] Routine 04/19/18 10:17 Cytology [PTH] Routine Date of Encounter: 04/21/18 Time of Encounter: 12:30 - Discharge Diagnosis (1) Acute cholecystitis Priority: Primary Status: Resolved (2) Lung mass Priority: Secondary Status: Suspected (3) Acute blood loss anemia Priority: Secondary Status: Acute (4) COPD (chronic obstructive pulmonary disease) Priority: Secondary Status: Chronic Qualifiers: COPD type: unspecified COPD Qualified Code(s): J44.9 - Chronic obstructive pulmonary disease, unspecified (5) HLD (hyperlipidemia) Priority: Secondary Status: Chronic Qualifiers: Hyperlipidemia type: unspecified Qualified Code(s): E78.5 - Hyperlipidemia , unspecified (6) Polysubstance abuse Priority: Secondary Status: Suspected (7) Bipolar 1 disorder, depressed Priority: Secondary Status: Chronic General Surgery Exam Initial Vital Signs Temp Pulse Resp BP Pulse Ox 98.6 F 76 20 132/96 100 04/18/18 08:05 04/18/18 08:05 04/18/18 08:05 04/18/18 08:05 04/18/18 08:05 - General physical appearance well developed, well nourished, no distress - Eyes normal ocular movement - ENT normal mucosa, atraumatic, normocephalic - Neck trachea midline - Respiratory normal respiratory effort, clear to auscultation - Cardiovascular Cardiovascular exam: Present: RRR - Abdomen Abdomen general surgery: Present: bowel sounds present, soft, tender (Expected postoperative tenderness) - Incision Incision: Present: clean and dry, intact - Integumentary Integumentary general surgery: Present: warm and dry - Neurologic Present: CN 2-12 grossly intact - Psychiatric Psychiatric general surgery: Present: appropriate, oriented to person, oriented to place, oriented to time, speech is normal, memory intact - Hospital Course Hospital course: Mr. Marmolejo is a 62 year old male who presented to the emergency room with acute onset abdominal pain. He was found to have acute cholecystitis. He was started on IV antibiotic therapy. He he did have a CT scan which also showed concerns for a lung mass. Further investigation with a chest CT confirms a chest mass. The patient did undergo bronchoscopy at the time of his cholecystectomy. He did have to be converted to open cholecystectomy due to blood loss. Pathology is pending. The patient will need follow-up with oncology when pathology complete. On postoperative day #2, the patient states that he feels much better. He has minimal abdominal discomfort associated with his incision. He is tolerating a diet without nausea or vomiting. His vital signs are stable he is afebrile. He is voiding and ambulating without difficulty. He does have postoperative anemia but is asymptomatic at this time. We will treat him with oral iron. He will be scheduled for outpatient follow-up in the next 1 week with the surgery office. - Time Spent with Patient Total time spent providing and/or coordinating discharge services: Less than 30 minutes - Discharge Medications Prescriptions: OxyCODONE/APAP 5/325 [Percocet 5/325 MG] 1 each PO Q6HR PRN 7 Days #28 tablet PRN Reason: Pain Docusate [Colace] 100 mg PO BID #60 capsule Ferrous Sulfate 325 mg PO BIDWM #60 tablet Home Medications: Albuterol Sulfate [Proair Hfa] 2 puff IH QID PRN 04/18/18 [History] Budesonide/Formoterol 160/4.5 [Symbicort 160/4.5] 2 puff IH BIDR 04/18/18 [ History] Divalproex (24 HR) [Depakote ER (24 HR)] 500 mg PO DAILY 04/18/18 [History] Ketotifen Fumarate [Zaditor] 1 drop BOTH EYES BID 04/18/18 [History] Multivit-Min/FA/Lycopen/Lutein [A Thru Z Select Men 50+ Tablet] 1 tab PO DAILY 04/18/18 [History] Omeprazole [PriLOSEC] 20 mg PO DAILY 04/18/18 [History] Piroxicam [Feldene] 20 mg PO DAILY 04/18/18 [History] Ranitidine HCl [Acid Locomotive Repairer Diesel] 150 mg PO BID 04/18/18 [History] Simvastatin [Zocor] 10 mg PO QPM 04/18/18 [History] Docusate [Colace] 100 mg PO BID #60 capsule 04/21/18 [Rx] Ferrous Sulfate 325 mg PO BIDWM #60 tablet 04/21/18 [Rx] OxyCODONE/APAP 5/325 [Percocet 5/325 MG] 1 each PO Q6HR PRN 7 Days #28 tablet [Rx] Allergies/Adverse Reactions: 3 Allergy/AdvReac Type Severity Reaction Status Date / Time No Known Allergies Allergy Verified 04/18/18 08:02 Date of admission: 04/18/18 11:03 Primary care physician: PCP [place] Consults: 04/19/18 07:35 Consult to Pulmonology [CONS] Stat Consulting Provider: [facility] [place] Reason for Consult: Left lung mass Time Notified: 07:36 Call Completed: Yes Discharging clinician: Dagoberto Silvestre (Clay Pascal) Anticipated date of discharge: 04/21/18 Labs on day of discharge: Labs from last 24 hours 04/21/18 04/21/18 04/19/18 01:23 01:23 04:36 WBC 5.8 RBC 2.85 L Hgb 7.0 L Hct 22.9 L MCV 80.4 L MCH 24.6 L MCHC 30.6 L RDW 15.0 H Plt Count 244 MPV 10.2 Immature Gran % 0.5 Seg Neutrophils % 69.3 Lymphocytes % 18.9 Monocytes % 8.3 Eosinophils % 3.0 Basophils % 0.0 Neutrophils # 4.0 Lymphocytes # 1.1 Monocytes # 0.5 Eosinophils # 0.2 Basophils # 0.0 Sodium 138 Potassium 3.7 Chloride 105 Carbon Dioxide 26 BUN 21 Creatinine 1.02 Est GFR ( Amer) > 60 Est GFR (Non-Af Amer) > 60 BUN/Creatinine Ratio 21 Glucose 140 H POC Glucose 90 Calculated Osmolality 291 Calcium 8.2 L Preliminary micro results at discharge 04/19/18 09:46 Respiratory Culture - Preliminary Left Upper Lobe Lung - Impressions ITS Impressions Abdomen/Pelvis CT 04/18/18 16:15 IMPRESSION: 1. Acute cholecystitis. Surgical consultation is recommended. 2. Partially visualized 6.5 cm left upper lobe masslike consolidation, most likely due to pneumonia or malignancy. A follow-up chest CT is recommended for further evaluation. D/ /18/2018 16:45:57 Will Story MD / harley Interpreting Provider: Will Story MD Chest CT 04/18/18 17:37 IMPRESSION: Neoplastic-appearing 6 cm mass involving the lingular left upper lobe. There are small associated lymph nodes in the mediastinum, including some tiny right hilar lymph nodes. Correlate with any prior outside imaging; otherwise, the tissue sampling in conjunction with PET-CT should be considered. D/ / Hansel Cortés / Hansel Cortés Interpreting Provider: Hansel Cortés - Patient Status Disposition: Home, Self-Care Condition: Good Functional capacity at discharge: independent ambulation Overall status at discharge: patient is progressing back to baseline - Discharge Instructions [facility] With: [facility] - Alex Graf MD [Partnered Physician] - (Patient needs to follow up within a couple of weeks, MD stated that he could be double booked. ) Dagoberto Silvestre MD [Partnered Physician] - 04/30/18 10:00 am (surgery follow- up) Forms: ED Satisfaction Letter, Work/School Release Additional Instructions: General Surgical Discharge Instructions 1. No pushing, pulling, or lifting greater than 15 lbs for 4 weeks 2. You may shower beginning today, but no tub baths, soaking, or swimming for 2 weeks. 3. You may resume driving when you are off narcotics and are safe to react in a car. 4. Take ibuprofen every 8 hours for discomfort. If this does not relieve discomfort, you may take the as needed Percocet. Take narcotics as directed. Do not take more narcotics then directed and do not share your narcotics with any other person. Do not drink alcohol while on narcotics. 5. Take stool softeners (Colace) or a water based laxative (Miralax) while taking narcotics. You may hold for loose stools. 6. Report any fevers greater than 100.5F, increase abdominal discomfort, drainage that looks like pus, increased redness or pain at the surgical site, or any vomiting. 7. Report any pain in the calves, shortness of breath, or rapid heartbeat. 8. Follow-up in the office as directed. 9. If you were prescribed antibiotics, do not stop them without talking to your provider. - Diet and Activity Activity: other (See additional instructions above) Diet: advance to your usual diet - Attending Attestation For this encounter, I have reviewed the [employer] or PA documentation, treatment plan, and medical decision making; and I have had face to face time with this patient.
== END 2018-04-21 14:43 | disposition home or self-care (01) ==
LOC: EMEROOARM 07:51 → 3ANU 07:51
PROVIDERS: ADMIT Surgery; ATTEND Surgery
PROC: ENDOLBX (2018-04-19 09:00)